=== PATIENT | female | born 1980 | race Caucasian/White ===

== ENCOUNTER 2024-04-26 08:13 | Outpatient (REF) | payer OTHER, SELFPAY ==
--- NOTE | 2024-04-26 08:19 | ECG_ITS ---
Test Reason : ROUTINE EKG Blood Pressure : */* mmHG Vent. Rate : 70 BPM Atrial Rate : 70 BPM P-R Int : 148 ms QRS Dur : 76 ms QT Int : 380 ms P-R-T Axes : 62 78 61 degrees QTcB Int : 410 ms Normal sinus rhythm with sinus arrhythmia Normal ECG No previous ECGs available Referred By: Charlene Mccarthy Electronically Signed By: Sigifredo Robles
[2024-04-26 08:52] LABS: Basophils Absolute Auto 0.1 X10*3/uL (0.0-0.2); Basophils Percent Auto 1.1 % (0-2); Eosinophils Absolute Auto 0.2 X10*3/uL (0.0-0.4); Eosinophils Percent Auto 4.2 % (0-4); Hematocrit 40.2 % (37.0-47.0); Hemoglobin 13.7 g/dl (12.0-16.0); Imm Gran Abs Auto 0.01 X10*3/uL (0.00-0.03); Imm Gran Pct Auto 0.2 % (0.0-0.4); Lymphocytes Absolute Auto 1.5 X10*3/uL (1.2-4.9); Lymphocytes Percent Auto 26.9 % (20-40); MANUAL DIFF FLAG NO; Mean Corpuscular HGB Conc 34.1 g/dl (31.0-35.0); Mean Corpuscular Hemoglobin 31.3 pg (27.0-33.0); Mean Corpuscular Volume 91.8 fL (80.0-98.0); Mean Platelet Volume 9.4 fL (9.4-12.3); Monocytes Absolute Auto 0.3 X10*3/uL (0.1-1.2); Monocytes Percent Auto 5.9 % (2-11); Neutrophils Absolute Auto 3.4 x10*3/uL (2.0-8.3); Neutrophils Percent Auto 61.7 % (45-73); Platelet Count 213 X10*3/uL (160-400); Red Blood Count 4.38 X10*6/uL (4.20-5.50); Red Cell Distribution Width 12.2 % (11.0-16.0); White Blood Count 5.5 X10*3/uL (4.8-10.8)
[2024-04-26 09:08] LABS: Anion Gap 12 (12-20)
[2024-04-26 09:14] LABS: Estimated Average Glucose 91 mg/dL; Hemoglobin A1C 101.4317 umol/L; Hemoglobin A1c % 4.8 % (<6.0); Total Hemoglobin (HGBA1C) 3560.5248 umol/L
[2024-04-26 09:15] LABS: Alanine Aminotransferase 20 U/L (0-31); Albumin Level 4.1 g/dL (3.5-5.0); Alkaline Phosphatase 57 U/L (39-117); Aspartate Amino Transferase 22 U/L (5-31); Bilirubin Total 0.8 mg/dL (0.0-1.0); Blood Urea Nitrogen 11 mg/dL (9-16); C Reactive Protein 0.12 mg/dL (< or = 0.50); Calcium 8.8 mg/dL (8.4-10.2); Carbon Dioxide 23 mmol/L (22-29); Chloride 109 mmol/L (96-108); Cholesterol 212 mg/dL (<200); Estimated Glomerular Filt Rate > 60; Glucose Fasting 85 mg/dL (60-99); HDL Cholesterol 83 mg/dL (>40); Iron 67 mcg/dL (30-160); LDL Cholesterol Calculated 119 mg/dL (<100); Lipase 18 U/L (8-78); Magnesium 1.8 mg/dL (1.6-2.6); Percent Iron Saturation 25 % (15-50); Phosphorus 3.1 mg/dL (2.7-4.5); Potassium 3.7 mmol/L (3.3-5.1); Sodium 140 mmol/L (135-145); Total Iron Binding Capacity 265 mcg/dL (228-428); Triglycerides 50 mg/dL (<150); Unsaturated Iron Binding 198 ug/dL
[2024-04-26 09:29] LABS: Lactate Dehydrogenase 125 U/L (122-220)
[2024-04-26 09:30] LABS: Rheumatoid Factor < 13.0 IU/mL (<15.0)
[2024-04-26 09:31] LABS: Erythrocyte Sedimentation Rate 4 MM/HR (0-20)
[2024-04-26 09:32] LABS: Ferritin 25 ng/mL (10-250); Free T4 (Free Thyroxine) 1.04 ng/dL (0.71-1.85); Thyroid Stimulating Hormone 1.03 uIU/mL (0.32-4.0); Vitamin D 25-OH Total 9.8 ng/mL (>30)
[2024-04-26 09:35] LABS: Appearance Urine Clear; Color Urine Yellow; Glucose Urine UA Negative (Negative); Leukocyte Esterase Urine Negative (Negative); Nitrite Urine Negative (Negative); Specific Gravity - Urine <= 1.005 (1.005-1.025); Urine Blood Negative (Negative); Urine Ketones Negative (Negative); Urine Protein Negative (Neg-Trace)
[2024-04-26 09:37] LABS: Parathyroid Hormone Intact 100.2 pg/mL (8.7-77.1)
[2024-04-26 09:43] LABS: Folate 13.4 ng/mL (> or = 4.0); Vitamin B12 364 pg/mL (200-900)
[2024-04-26 09:57] LABS: UPreg QC Valid YES; Urine Pregnancy NEGATIVE (NEGATIVE)
[2024-04-27 19:13] LABS: Homocysteine 8.5 umol/L (<10.4)
[2024-04-28 05:27] LABS: Triiodothyronine T3 Free 3.1 pg/mL (2.3-4.2); Triiodothyronine T3 Total 98 ng/dL (76-181)
[2024-04-29 17:59] LABS: Methylmalonic Acid 109 nmol/L (55-335)
[2024-05-01 15:23] LABS: Vitamin B6 11.2 ng/mL (2.1-21.7)
[2024-05-06 07:44] LABS: Vitamin B1 13 nmol/L (8-30)
== END 2024-04-26 08:14 | disposition home or self-care (01) ==
LOC: HO.LAB 08:13
PROVIDERS: PCP Student in an Organized Health Care Education/Training Program; Visit Provider Psychiatry & Neurology Psychiatry
DX: F39 Unspecified mood [affective] disorder (principal); R63.0 Anorexia
CPT/HCPCS: 36415; 80053; 80061; 81003; 81025; 82306; 82550; 82607; 82728; 82746; 83036; 83090; 83540; 83615; 83690; 83735; 83921; 83970; 84100; 84207; 84425; 84439; 84443; 84480; 84481; 85025; 85652; 86140; 86431; 93005

== ENCOUNTER → 2024-04-26 08:19 | Outpatient (BNV) | payer OTHER, SELFPAY | PROVIDERS: PCP Student in an Organized Health Care Education/Training Program; Visit Provider Internal Medicine Cardiovascular Disease | DX: Z13.6 Encounter for screening for cardiovascular disorders (principal) | CPT/HCPCS: 93010 ==

== ENCOUNTER 2024-05-23 08:15 | Outpatient (RCR) | payer OTHER, SELFPAY ==
[2024-04-24 09:38] VITALS: BMI 17.3
[2024-04-24 09:41] VITALS: BP 80/60; PULSE 68; TEMP 36.7
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
[2024-04-25 13:40] VITALS: BP 90/58; PULSE 64
--- NOTE | 2024-04-27 12:24 | PC.NURSE ---
Dr. Mccarthy is aware of patient's lab and EKG results including: PTH 100.2, Vitamin D 9.8. (calcium WNL) EKG Normal sinus rhythm with sinus arrhythmia. No new orders.
--- NOTE | 2024-04-27 15:16 | HO.PHP ---
Client's case has been opened and reviewed in team.
--- NOTE | 2024-05-05 23:58 | HO.PHPPROGNO ---
Subjective Subjective Date of Service: 05/05/24 Reason For Visit: PTSD,anxiety,depression,SI Interim History: Anxiety kind of up and down.. kind of have this feeling it's unsafe at times . Feeling unnerved, pending doom feeling. FInds her roommate to be very stressful to be around. Complains of worse fatigue, exhaustion and does present as more slow and tired today. She has been napping after program, from 3-6pm which does appear to affect her sleep since she goes to bed between 8-10 pm but is the usually waking variably between 1am and 7am. Appetite has not really improved much with addition of Seroquel. We discussed mirtazapine which she has been on in past. ROommate also has an eating disorder which really affects her. Patient did better when she had a roommate who enjoyed eating and then patient was better able to relax and try eating more. APpetite continues to be poor. Some of this is anxiety and stress. Discusses various stressors in her life. A lot of PTSD Says she has difficulty when triggered, sometimes I cant even sit still Has been utilizing a meditation strategy kaleidoscope meditation one of her peers told her about. On youtube. Has been helpful. Still feelings of helplessness. Trying to stay focused on treatment. Denies any thoughts of harming self or others. Medication Compliance: Yes Side effects from medications: Yes (as noted above) Attending Groups: Yes Review of Systems Acute medical concerns: No Mental Status Exam Mental Status Exam Narrative: Alert, oriented, in no acute distress. Thin frame, cachexic, pale complexion. Calm, cooperative, engaged, polite, friendly but reserved. No psychomotor agitation or neurovegetative retardation. Eye contact maintained. Mood anxious, affect variable, depressed, mood congruent. Speech normal. Thought process linear, coherent. Thought content related to stressors, hopelessness, helplessness but denies any SI. Denies any aggressive ideation or HI. No paranoia or delusional content elicited. No evidence of psychosis. Insight and judgment - fair but adequate. Diagnostics Vital Signs (24Hr): BMI result Body Mass Index 17.3 Assessment & Plan Assessment & Plan (1) Complex posttraumatic stress disorder: Status: Acute Code(s): F43.10 - Post-traumatic stress disorder, unspecified (2) Other recurrent depressive disorders: Status: Acute Code(s): F33.8 - Other recurrent depressive disorders (3) Pain disorder associated with psychological factors and medical condition: Status: Acute Code(s): F45.42 - Pain disorder with related psychological factors (4) Other mixed anxiety disorders: Status: Acute Code(s): F41.3 - Other mixed anxiety disorders (5) Nicotine dependence with current use: Status: Acute Code(s): F17.200 - Nicotine dependence, unspecified, uncomplicated (6) Anorexia: Status: Acute Code(s): R63.0 - Anorexia Assessment and Plan: abnormal loss of appetite for food r/o medical/neurological causes r/o anxiety, depression, trauma, other psychological causes likely ARFID, otherwise patient does not appear to have an eating disorder, specifically anorexia nervosa (7) Avoidant-restrictive food intake disorder (ARFID): Status: Acute Code(s): F50.82 - Avoidant/restrictive food intake disorder Plan Continue PHP continue prazosin 1 mg qhs, (consider BID to target anxiety, hypervigilence/PTSD (may consider Intuniv for daytime if better tolerated) start Abilify 1 mg qhs night) continue quetiapine XR 50 mg qhs prn sleep continue duloxetine 60 mg qd (other considerations switching to amoxapine (or mirtazapine + another atypical) if Seroquel ineffective) continue lamotrigine 200 mg qd continue hydroxyzine hcl 25 mg q 6hr (may consider switching to cyproheptadine - for orexigenic and anxiolytic effx) albuterol inhaler PRN? start vitamin D2 51641 IU qd Discont clonidine 0.2 mg qhs, olanzapine Reviewed prelimainary labs results, still waiting for pending results EKG, routine for baseline QTc for medication considerations as indicated UDS as indicated VS reviewed: mario, BP 80/60;?68 bpm Continue to monitor Patient educated on: diagnosis and medication risk/benefits Informed Consent: understands Reason for contiued partial hosp. stay Substantial Risk for: inability to function and med/psych decompensation Certification I certify that partial hospital treatment is medically necessary due to the symptoms and problems resulting from the patient's mental illness and the failure to treat the patient at the partial hospital level of care would likely result in the patient requiring inpatient psychiatric care which could not be prevented at a less intensive level of care. Total time managing care of this patient today __30__ minutes. Discharge Plan Discharge Attending provider: Charlene Mccarthy Medications: New nicotine (polacrilex) [Nicorette] 4 mg gum 4 mg buccal Q2H Qty: 100 0RF ergocalciferol (vitamin D2) [Vitamin D2] 1,250 mcg (50,000 unit) capsule 1,250 mcg PO QWEEK Qty: 14 0RF aripiprazole 2 mg tablet 2 mg PO BEDTIME Qty: 20 0RF vitamin B complex Capsule 1 cap PO DAILY Qty: 30 1RF Savella 12.5 mg tablet 12.5 mg PO DAILY Qty: 30 0RF ondansetron HCl 4 mg tablet 4 mg PO BID PRN (Reason: nausea) Qty: 10 0RF duloxetine 20 mg capsule,delayed release(DR/EC) 20 mg PO BID Qty: 30 0RF clonazepam 0.5 mg tablet 0.25 - 0.5 mg PO DAILY PRN (Reason: anxiety) Qty: 20 0RF Continued lamotrigine 200 mg tablet 200 mg PO DAILY hydroxyzine HCl 25 mg tablet 25 mg PO QID PRN (Reason: anxiety) albuterol sulfate [Ventolin HFA] 90 mcg/actuation HFA aerosol inhaler 2 puff INHALATION Q6H duloxetine 60 mg capsule,delayed release(DR/EC) 60 mg PO DAILY prazosin 1 mg capsule 1 mg PO BEDTIME Qty: 30 0RF Discontinued olanzapine 5 mg tablet 5 mg PO DAILY No Action clonidine HCl 0.2 mg tablet 0.2 mg PO DAILY Stand Alone Forms: Patient Portal Discharge page Print Language: Spanish
--- NOTE | 2024-05-09 12:06 | P.PNPSP_ITS ---
Subjective Subjective Date of Service: 05/09/24 Reason For Visit: PTSD,anxiety,depression,SI Interim History: Patient seen for follow-up. I do not know I think I am about the same. I am definitely tired. Patient says she has been trying to fight taking naps in the afternoon as we discussed but finds she can not really stay up pat much past 18:00. Nonetheless sleep continues to be disruptive waking every hour so. Fatigue has been a long-term struggle for most of her life she says. She does feel this is tied up with her poor eating habits. She discusses these in great detail and symptoms and history strongly correlate with avoidant restrictive food intake disorder. I had someone in my life who ate regularly this really helped me out had, having that structure and support. She notes that struggling with low appetite disinterested in food makes it difficult to motivate herself to eat but doing so in the in parallel with someone else has been helpful in the past. my current roommate has not eating disorder which is undiagnosed and being around not just makes eating more difficult. I have never been somebody who struggles with body image and I definitely think I afford to put on more weight. I have always been underweight she notes this is not the lowest she has been and has had periods of being 5-10 lb less but generally is not is not weighed more than 5 or 10 lb more than her current weight. Her weight generally does not fluctuate quickly either way. She continues to struggle with fibromyalgia and pain issues. We reviewed her lab work and she has started on vitamin-D supplementation for severe vitamin-D deficiency. Labs also reveal hyperparathyroid ism, calcium levels are normal as well as renal function, I suspect is reflective of secondary hyperparathyroidism due to vitamin-D deficiency. Will correct underlying cause for S HPT and we discussed her following up with her PCP in 2-3 months to recheck these levels. Medication Compliance: Yes Side effects from medications: No Attending Groups: Yes Review of Systems Acute medical concerns: No Mental Status Exam Mental Status Exam Narrative: Alert, oriented, in no acute distress. Thin frame, cachexic, pale complexion. Calm, cooperative, engaged, polite, friendly but reserved. No psychomotor agitation or neurovegetative retardation. Eye contact maintained. Mood anxious, affect variable, depressed, mood congruent. Speech normal. Thought process linear, coherent. Thought content related to stressors, hopelessness, helplessness but denies any SI. Denies any aggressive ideation or HI. No paranoia or delusional content elicited. No evidence of psychosis. Insight and judgment - fair but adequate. Diagnostics Vital Signs (24Hr): BMI result Body Mass Index 17.3 Assessment & Plan Assessment & Plan (1) Complex posttraumatic stress disorder: Status: Acute Code(s): F43.10 - Post-traumatic stress disorder, unspecified (2) Other recurrent depressive disorders: Status: Acute Code(s): F33.8 - Other recurrent depressive disorders (3) Pain disorder associated with psychological factors and medical condition: Status: Acute Code(s): F45.42 - Pain disorder with related psychological factors (4) Other mixed anxiety disorders: Status: Acute Code(s): F41.3 - Other mixed anxiety disorders (5) Nicotine dependence with current use: Status: Acute Code(s): F17.200 - Nicotine dependence, unspecified, uncomplicated (6) Anorexia: Status: Acute Code(s): R63.0 - Anorexia Assessment and Plan: abnormal loss of appetite for food r/o medical/neurological causes r/o anxiety, depression, trauma, other psychological causes unlikely ARFID, otherwise patient does not appear to have an eating disorder, specifically anorexia nervosa (7) Avoidant-restrictive food intake disorder (ARFID): Status: Acute Code(s): F50.82 - Avoidant/restrictive food intake disorder Assessment and Plan: working diagnosis (8) Secondary hyperparathyroidism: Status: Acute Code(s): N25.81 - Secondary hyperparathyroidism of renal origin (9) Vitamin D deficiency: Status: Acute Code(s): E55.9 - Vitamin D deficiency, unspecified Plan Continue PHP continue prazosin 1 mg qhs, (consider BID to target anxiety, hypervigilence/PTSD (may consider Intuniv for daytime if better tolerated) continue Abilify 1-2 mg qhs night hold quetiapine XR 50 mg qhs prn sleep start Savella 12.5 mg qd (cont to titrate as tolerated/indicated) continue duloxetine 60 mg qd (other considerations switching to amoxapine (or mirtazapine + another atypical) if Seroquel ineffective) continue lamotrigine 200 mg qd continue hydroxyzine hcl 25 mg q 6hr (may consider switching to cyproheptadine - for orexigenic and anxiolytic effx) albuterol inhaler PRN? continue vitamin D2 15254 IU qd Discont clonidine 0.2 mg qhs, olanzapine Routine lab work ordered ordered - including CBC, CMP, lipid panel, TFTs, PTH, nutritional panel, prolactin EKG, routine for baseline QTc for medication considerations as indicated VS reviewed: (04/25/24) 90/58; 64 bpm; (04/24/24) abrefile, BP 80/60;?68 bpm; Continue to monitor Patient educated on: diagnosis, medication risk/benefits and medical condition Informed Consent: understands Reason for contiued partial hosp. stay Substantial Risk for: inability to function, rapid decompensation and med/psych decompensation Certification I certify that partial hospital treatment is medically necessary due to the symptoms and problems resulting from the patient's mental illness and the failure to treat the patient at the partial hospital level of care would likely result in the patient requiring inpatient psychiatric care which could not be prevented at a less intensive level of care. Total time managing care of this patient today _40___ minutes. Discharge Plan Discharge Attending provider: Charlene Mccarthy Medications: New nicotine (polacrilex) [Nicorette] 4 mg gum 4 mg buccal Q2H Qty: 100 0RF ergocalciferol (vitamin D2) [Vitamin D2] 1,250 mcg (50,000 unit) capsule 1,250 mcg PO QWEEK Qty: 14 0RF aripiprazole 2 mg tablet 2 mg PO BEDTIME Qty: 20 0RF vitamin B complex Capsule 1 cap PO DAILY Qty: 30 1RF Savella 12.5 mg tablet 12.5 mg PO DAILY Qty: 30 0RF ondansetron HCl 4 mg tablet 4 mg PO BID PRN (Reason: nausea) Qty: 10 0RF duloxetine 20 mg capsule,delayed release(DR/EC) 20 mg PO BID Qty: 30 0RF clonazepam 0.5 mg tablet 0.25 - 0.5 mg PO DAILY PRN (Reason: anxiety) Qty: 20 0RF Continued lamotrigine 200 mg tablet 200 mg PO DAILY hydroxyzine HCl 25 mg tablet 25 mg PO QID PRN (Reason: anxiety) albuterol sulfate [Ventolin HFA] 90 mcg/actuation HFA aerosol inhaler 2 puff INHALATION Q6H duloxetine 60 mg capsule,delayed release(DR/EC) 60 mg PO DAILY prazosin 1 mg capsule 1 mg PO BEDTIME Qty: 30 0RF Discontinued olanzapine 5 mg tablet 5 mg PO DAILY No Action clonidine HCl 0.2 mg tablet 0.2 mg PO DAILY Stand Alone Forms: Patient Portal Discharge page Print Language: Maltese
--- NOTE | 2024-05-19 11:01 | P.PNPSP_ITS ---
Subjective Subjective Date of Service: 05/19/24 Reason For Visit: PTSD,anxiety,depression,SI Interim History: I feel better this week . Reports mood is a lot better . She is tolerating meds well. I'm still having a hard time staying grounded (when she gets triggered in relation to triggering discussion in groups She has hydroxyzine but finds it too tiring to take during the day, even with doses of 12.5. More helpful when she is home and can rest. She had been taking hydroyxzine every night but then someone told her she should only take it PRN so she tries to take it sparingly. Denies any adverse effects from the medications, denies any health concerns from the medication. I reiterate she can take as needed, but mostly because she is not required to take it if she is not feeling anxious, but certainly should be feel free to take it if she is unable to sleep or for anxiety. She continues on ABlify 1/2 tablet, she is advised to increase to 2 mg qhs. We discussed bridging anxiety with a benzodiazepine while Savella and ABilify continue to be titrated. Denies any alcohol or drug use issues. Denies SI, HI, AH, VH. Medication Compliance: Yes Side effects from medications: No Attending Groups: Yes Review of Systems Acute medical concerns: No Mental Status Exam Mental Status Exam Narrative: Alert, oriented, in no acute distress. Thin frame, cachexic, pale complexion. Calm, cooperative, engaged, polite, friendly but reserved. No psychomotor ana paula tation or neurovegetative retardation. Eye contact maintained. Mood anxious, affect variable, depressed, mood congruent. Speech normal. Thought process linear, coherent. Thought content related to stressors, transient hopelessness, helplessness but denies any SI. Denies any aggressive ideation or HI. No paranoia or delusional content elicited. No evidence of psychosis. Insight and judgment - fair-good. Diagnostics Vital Signs (24Hr): BMI result Body Mass Index 17.3 Assessment & Plan Assessment & Plan (1) Complex posttraumatic stress disorder: Status: Acute Code(s): F43.10 - Post-traumatic stress disorder, unspecified (2) Other recurrent depressive disorders: Status: Acute Code(s): F33.8 - Other recurrent depressive disorders (3) Pain disorder associated with psychological factors and medical condition: Status: Acute Code(s): F45.42 - Pain disorder with related psychological factors (4) Other mixed anxiety disorders: Status: Acute Code(s): F41.3 - Other mixed anxiety disorders (5) Nicotine dependence with current use: Status: Acute Code(s): F17.200 - Nicotine dependence, unspecified, uncomplicated (6) Anorexia: Status: Acute Code(s): R63.0 - Anorexia Assessment and Plan: abnormal loss of appetite for food r/o medical/neurological causes r/o anxiety, depression, trauma, other psychological causes unlikely ARFID, otherwise patient does not appear to have an eating disorder, specifically anorexia nervosa (7) Avoidant-restrictive food intake disorder (ARFID): Status: Acute Code(s): F50.82 - Avoidant/restrictive food intake disorder Assessment and Plan: working diagnosis Plan Continue PHP continue prazosin 1 mg qhs, (consider BID to target anxiety, hypervigilence/PTSD (may consider Intuniv for daytime if better tolerated) increase Abilify 2 mg qhs night increase Savella to 12.5 mg BID (cont to titrate as tolerated/indicated) decrease duloxetine to 40 mg qd continue lamotrigine 200 mg qd continue hydroxyzine hcl 25 mg q 6hr (may consider switching to cyproheptadine - for orexigenic and anxiolytic effx) start clonazepam 0.25-0.5 mg qd prn anxiety (in groups) albuterol inhaler PRN? continue vitamin D2 39372 IU qd Discont clonidine 0.2 mg qhs, olanzapine, quetiapine, Routine lab work ordered ordered - including CBC, CMP, lipid panel, TFTs, PTH, nutritional panel, prolactin EKG, routine for baseline QTc for medication considerations as indicated UDS as indicated VS reviewed: mario, BP 80/60;?68 bpm Continue to monitor Patient educated on: diagnosis, medication risk/benefits and medical condition Informed Consent: understands Reason for contiued partial hosp. stay Substantial Risk for: inability to function and med/psych decompensation Certification I certify that partial hospital treatment is medically necessary due to the symptoms and problems resulting from the patient's mental illness and the failure to treat the patient at the partial hospital level of care would likely result in the patient requiring inpatient psychiatric care which could not be prevented at a less intensive level of care. Total time managing care of this patient today _30___ minutes. Discharge Plan Discharge Attending provider: Charlene Mccarthy Medications: New nicotine (polacrilex) [Nicorette] 4 mg gum 4 mg buccal Q2H Qty: 100 0RF ergocalciferol (vitamin D2) [Vitamin D2] 1,250 mcg (50,000 unit) capsule 1,250 mcg PO QWEEK Qty: 14 0RF aripiprazole 2 mg tablet 2 mg PO BEDTIME Qty: 20 0RF vitamin B complex Capsule 1 cap PO DAILY Qty: 30 1RF Savella 12.5 mg tablet 12.5 mg PO DAILY Qty: 30 0RF ondansetron HCl 4 mg tablet 4 mg PO BID PRN (Reason: nausea) Qty: 10 0RF duloxetine 20 mg capsule,delayed release(DR/EC) 20 mg PO BID Qty: 30 0RF clonazepam 0.5 mg tablet 0.25 - 0.5 mg PO DAILY PRN (Reason: anxiety) Qty: 20 0RF Continued lamotrigine 200 mg tablet 200 mg PO DAILY hydroxyzine HCl 25 mg tablet 25 mg PO QID PRN (Reason: anxiety) albuterol sulfate [Ventolin HFA] 90 mcg/actuation HFA aerosol inhaler 2 puff INHALATION Q6H duloxetine 60 mg capsule,delayed release(DR/EC) 60 mg PO DAILY prazosin 1 mg capsule 1 mg PO BEDTIME Qty: 30 0RF Discontinued olanzapine 5 mg tablet 5 mg PO DAILY No Action clonidine HCl 0.2 mg tablet 0.2 mg PO DAILY Stand Alone Forms: Patient Portal Discharge page Print Language: Guatemalan
--- NOTE | 2024-05-23 14:58 | HO.PHPPROGNO ---
Subjective Subjective Date of Service: 05/23/24 Reason For Visit: PTSD,anxiety,depression,SI Diagnostics Vital Signs (24Hr): BMI result Body Mass Index 17.3 Assessment & Plan Certification I certify that partial hospital treatment is medically necessary due to the symptoms and problems resulting from the patient's mental illness and the failure to treat the patient at the partial hospital level of care would likely result in the patient requiring inpatient psychiatric care which could not be prevented at a less intensive level of care. Total time managing care of this patient today ____ minutes. Discharge Plan Discharge Attending provider: Charlene Mccarthy Medications: New nicotine (polacrilex) [Nicorette] 4 mg gum 4 mg buccal Q2H Qty: 100 0RF ergocalciferol (vitamin D2) [Vitamin D2] 1,250 mcg (50,000 unit) capsule 1,250 mcg PO QWEEK Qty: 14 0RF vitamin B complex Capsule 1 cap PO DAILY Qty: 30 1RF ondansetron HCl 4 mg tablet 4 mg PO BID PRN (Reason: nausea) Qty: 10 0RF clonazepam 0.5 mg tablet 0.25 - 0.5 mg PO DAILY PRN (Reason: anxiety) Qty: 20 0RF Savella 25 mg tablet 25 mg PO DAILY Qty: 30 0RF Continued hydroxyzine HCl 25 mg tablet 25 mg PO QID PRN (Reason: anxiety) albuterol sulfate [Ventolin HFA] 90 mcg/actuation HFA aerosol inhaler 2 puff INHALATION Q6H prazosin 1 mg capsule 1 mg PO BEDTIME Qty: 30 0RF lamotrigine 200 mg tablet 200 mg PO DAILY Qty: 30 0RF duloxetine 20 mg capsule,delayed release(DR/EC) 20 mg PO BID Qty: 30 0RF Rx Instructions: =Plan to taper off as directed= aripiprazole 2 mg tablet 2 mg PO BEDTIME Qty: 30 0RF Discontinued olanzapine 5 mg tablet 5 mg PO DAILY clonidine HCl 0.2 mg tablet 0.2 mg PO DAILY duloxetine 60 mg capsule,delayed release(DR/EC) 60 mg PO DAILY Stand Alone Forms: Patient Portal Discharge page Patient Education: Post Traumatic Stress Disorder (DC) Print Language: Italian
== END 2024-05-23 23:59 | disposition home or self-care (01) ==
LOC: HO.PHPA 08:15
PROVIDERS: Visit Provider Psychiatry & Neurology Psychiatry
DX: F43.10 Post-traumatic stress disorder, unspecified (principal); F33.8 Other recurrent depressive disorders; F45.42 Pain disorder with related psychological factors; F41.3 Other mixed anxiety disorders; F50.82 Avoidant/restrictive food intake disorder; N25.81 Secondary hyperparathyroidism of renal origin; E55.9 Vitamin D deficiency, unspecified; F17.200 Nicotine dependence, unspecified, uncomplicated; Z79.899 Other long term (current) drug therapy
CPT/HCPCS: 90791; 90853